=== PATIENT | female | born 1950 | race Caucasian/White ===

== ENCOUNTER 2016-06-30 09:45 | Emergency (ER) | payer MEDICARE, OTHER ==
[2016-06-30 10:09] VITALS: BP 131/72
--- NOTE | 2016-06-30 10:16 | ED Physician Documentation ---
Low Back Pain - HISTORIAN Historian: patient - HPI Stated Complaint: back pain Chief Complaint: Lower Extremity Injury Onset: days ago (3) Duration: continues in ED Recent Injury: Yes Context: lifting Where: other Severity: moderate Further Comments: yes - ROS CONST: no problems CVS/RESP: none - PAST HX Past History: back injury (disc disease with sciatica), other (copd 3) Other History: other Surgeries/Procedures: none Allergies/Adverse Reactions: Allergies Allergy/AdvReac Type Severity Reaction Status Date / Time sulfamethoxazole Allergy Unknown Verified 06/30/16 09:57 [From Bactrim] trimethoprim [From Bactrim] Allergy Unknown Verified 06/30/16 09:57 codeine Allergy Verified 06/30/16 09:57 Sulfa (Sulfonamide Allergy Verified 06/30/16 09:57 Antibiotics) Home Medications: Ambulatory Orders Medication Instructions Recorded Albuterol Sulfate [Proventil Hfa] 6.75 gm PO BID PRN 10/29/13 Tiotropium [place] [Spiriva] 1 inh INH BID 02/28/15 Clonazepam [Clonazepam] 1 mg PO HS PRN 06/30/16 Cyclobenzaprine HCl 5 mg PO TID PRN #20 tablet 06/30/16 Naproxen [Naprosyn] 500 mg PO BID PRN #30 tablet 06/30/16 Sertraline HCl [Sertraline HCl] 50 mg PO DAILY 06/30/16 - SOCIAL HX Smoking History: less than 1 pack/day Alcohol Use: none Drug Use: none - FAMILY HX Family History: no significant history - VITAL SIGNS Vital Signs: Vital Signs Temp Pulse Resp BP Pulse Ox 98.2 F 94 H 16 131/72 98 06/30/16 10:00 06/30/16 10:00 06/30/16 10:00 06/30/16 10:00 06/30/16 10:00 - REVIEWED ASSESSMENTS Nursing Assessment Reviewed: Yes Vitals Reviewed: Yes ED Results Lab/Radiology - Orders Orders: ED Orders Category Date Time Status Ketorolac Tromethamine [Toradol] Med 06/30/16 10:28 Discontinued 60 mg IM NOW ONE Low Back Pain/Injury - Physical Exam General Appearance: alert, moderate distress Neck: non-tender, painless ROM, trachea midline. No: vertebral point-tendernes Resp/CVS: chest non-tender, breath sounds nml, heart sounds nml, no resp. distress. No: wheezes, rales, rhonchi Abdomen: non-tender, no organomegaly, no pulsatile mass Back: CVA tenderness, muscle spasm (mild bilateral). No: vertebral point- tendernes Straight Leg Raising: Negative Left, Negative Right Neuro/Psych: oriented x3, motor nml, sensation nml Skin: warm/dry, normal color Extremities: non-tender, normal range of motion, no evidence of injury Discharge Clincal Impression: Low back pain Qualifiers: Chronicity: acute Back pain laterality: bilateral Sciatica presence: without sciatica Qualified Code(s): M54.5 - Low back pain Prescriptions: Cyclobenzaprine HCl 5 mg PO TID PRN #20 tablet PRN Reason: muscle spasms Naproxen [Naprosyn] 500 mg PO BID PRN #30 tablet PRN Reason: Pain Referrals: Primary Doctor,No [Primary Care Provider] - 2 Days Additional Instructions: Try alternating warm cool compress to the back area. Try tot do low back exercises. Take Naprosyn and cyclobenzaprine as directed. These my cause drowsiness. If symptoms do not improve to follow-up with your primary provider. Home Medications: Ambulatory Orders Albuterol Sulfate [Proventil Hfa] 6.75 gm PO BID PRN 10/29/13 Tiotropium [place] [Spiriva] 1 inh INH BID 02/28/15 Clonazepam [Clonazepam] 1 mg PO HS PRN 06/30/16 Cyclobenzaprine HCl 5 mg PO TID PRN #20 tablet 06/30/16 Naproxen [Naprosyn] 500 mg PO BID PRN #30 tablet 06/30/16 Sertraline HCl [Sertraline HCl] 50 mg PO DAILY 06/30/16 Condition: Stable Disposition: HOME, SELF-CARE Decision to Admit: NO Date of Decison to Admit: 06/30/16 Decision Time: 10:34
[2016-06-30] MEDS ORDERED: KETOROLAC TROMETHAMINE 60 MG/2 ML VIAL IM ONE (10:28)
== END 2016-06-30 10:54 | disposition home or self-care (01) ==
LOC: ED 09:45
DX: M54.5 Low back pain (principal); F17.210 Nicotine dependence, cigarettes, uncomplicated; J44.9 Chronic obstructive pulmonary disease, unspecified
CPT/HCPCS: 96372; 99283; 99284; J1885